=== PATIENT | male | born 1995 | race Caucasian/White ===

== ENCOUNTER 2017-02-10 17:49 | Emergency (ER) | payer SELFPAY ==
[~2017-02-10] VITALS: Ht 180.3 cm; Wt 70.5 kg
[~2017-02-10 17:49] MED LIST: Z.0.NO CURRENT MEDS
[2017-02-10 17:51] VITALS: BP 119/76; PULSE 84; RESP 16; TEMP 98.2; O2SAT 99
[2017-02-10] MEDS ORDERED: MICO2CRE34 TOPICAL (18:05)
[2017-02-10] MEDS ORDERED: BACT800T5 PO (18:05)
--- NOTE | 2017-02-10 18:12 | PD ---
HPI Chief Complaint: Skin Problem Time Seen by Provider: 18:06 Travel History International Travel<30 days: No Contact w/Intl Traveler<30days: No Traveled to known affect area: No History of Present Illness HPI 21-year-old male that presents to the ED for evaluation of itchy rash over the body. Per patient he has a fungal infection and possible lumps all over the body. Per patient she's had this for quite some time. Per caregiver and patient she's not been taking care of himself. Patient lives [place] shed with her condition and per caregiver he's not been taking care of himself in the sense that he's not been cleaning his body are taking care of his hygiene. Patient does have a history of ADHD as well as psychiatric illness. Other than this he reports no other issues. Apparently today patient was feeling more concerned about his rash and he started to have a panic attack. He states that the rash is very itchy especially on the leg and the torso. Per patient he also has some other pus pockets that he's been breaking himself. States that he also has fungus in his toes and feet. Per patient the rash is not really painful but it does cause some discomfort when she itches and he believes that his burning it. She denies any fevers chills or sweats. No other medical process. Takes no medications. Up-to-date with vaccinations. PFSH Past Medical History Medical History: Denies Significant Hx Social History Alcohol Use: No Tobacco Use: No Substance Use: No Allergies-Medications (Allergen,Severity, Reaction): Coded Allergies: No Known Allergies (Verified , 02/10/17) Reported Meds & Prescriptions Reported Meds & Active Scripts Active Miconazole Topical 2% Cream 1 Applic TOPICAL BID 30 Days Bactrim DS (Sulfamethoxazole-Trimethoprim) 800-160 Mg Tab 1 Tab PO BID 10 Days Reported No Current Meds (Miscellaneous Medication) Misc Review of Systems Except as stated in HPI: all other systems reviewed are Neg Physical Exam Narrative GENERAL: SKIN: Warm and dry. Patient has 3 different rashes. On his back, legs, upper extremity he has pustule-like lesions that appear to be staph infections that are very small and less than a quarter centimeter. No obvious purulence at this time or abscess noted. Not painful. On his left inner thigh patient has a circular rash with a clear center that is itchy and pruritic. Patient has similar rash on the right torso as well as the upper extremity. In addition he also has a rash on the toes especially of the right foot mainly around about stasis of the toes on the toes themselves. Very pruritic. HEAD: Atraumatic. Normocephalic. EYES: Pupils equal and round. No scleral icterus. No injection or drainage. ENT: No nasal bleeding or discharge. Mucous membranes pink and moist. Tongue is midline. No uvula deviation. NECK: Trachea midline. No JVD. CARDIOVASCULAR: Regular rate and rhythm. No murmurs, S3, S4. RESPIRATORY: No accessory muscle use. Clear to auscultation. Breath sounds equal bilaterally. GASTROINTESTINAL: Abdomen soft, non-tender, nondistended. Hepatic and splenic margins not palpable. MUSCULOSKELETAL: Extremities without clubbing, cyanosis, or edema. No obvious deformities. NEUROLOGICAL: Awake and alert. No obvious cranial nerve deficits. Motor grossly within normal limits. Five out of 5 muscle strength in the arms and legs. Normal speech. PSYCHIATRIC: Appropriate mood and affect; insight and judgment normal. Data Data Last Documented VS Vital Signs Date Time Temp Pulse Resp B/P Pulse Ox O2 Delivery O2 Flow Rate FiO2 02/10/17 17:51 98.2 84 16 119/76 99 MDM Medical Decision Making Medical Screen Exam Complete: Yes Emergency Medical Condition: Yes Medical Record Reviewed: Yes Differential Diagnosis Tinea corporis versus tinea pedis versus pustules versus staph infection Narrative Course 21-year-old male that presents to the ED for evaluation of rash. Patient was properly examined and was found to have signs and symptoms consistent with appears to be to me pustule. Possible from insect bites versus staph infection. At this time I recommend trial of Bactrim to cover for this. In addition patient has tinea pedis as well as reports. At this time I recommend trial of miconazole topical to treat the fungal infection. Recommend close follow with PCP. Proper hygiene was concerned. Follow up with PCP. See ED worsening symptoms. Diagnosis Primary Impression: Tinea corporis Additional Impressions: Tinea pedis Qualified Code: B35.3 - Tinea pedis of right foot Pustules determined by examination Patient Instructions: General Instructions Additional Instructions: Take medications as prescribed. Follow with PCP. See ED for worsening symptoms. Fungal infection of the foot as well as the leg might take up to a month to 2 months before it dissipates completely. Please be very methodical about applying the cream twice a day on this areas to get rid of it. Cleaned her self well with a good antibacterial soap. Med/Other Pt SpecificInfo: Prescription(s) given Scripts Miconazole Topical 2% Cream1 Applic TOPICAL BID 30 Days Ref 0 Prov:Mehdi Jaime MD 02/10/17 Sulfamethoxazole-Trimethoprim (Bactrim DS)800-160 Mg Tab1 Tab PO BID 10 Days Prov:Mehdi Jaime MD 02/10/17 Disposition: 01 DISCHARGE HOME Condition: Stable Abbe Williamson Feb 10, 2017 18:12
[2017-02-10] MEDS ORDERED: SULFAMETHOXAZOLE-TRIMETHOPRIM DS 800-160 MG TAB PO ONE (18:30)
== END 2017-02-10 18:26 | disposition home or self-care (01) ==
LOC: PHEFT 17:49
DX: B35.4 Tinea corporis (principal); B35.3 Tinea pedis; F90.9 Attention-deficit hyperactivity disorder, unspecified type
CPT/HCPCS: 99282